=== PATIENT | male | born 1945 | race Caucasian/White ===

== ENCOUNTER 2018-02-08 05:38 | Observation (INO) | payer MEDICARE ==
--- NOTE | 2018-02-07 09:43 | Diagnostic Imaging Report ---
PROCEDURE:CHEST 2 VIEWS TECHNIQUE:PA and lateral chest INDICATION:Preoperative evaluation for spine surgery COMPARISON:None. FINDINGS: Lungs are clear. No pleural effusions. Normal heart size, mediastinal contour, and pulmonary vasculature. Intact skeleton. Mild multilevel degenerative disc disease. CONCLUSION: Normal chest. Dictated by: Ross Longoria M.D. on 02/07/2018 at 9:44 Electronically approved by: Ross Longoria M.D. on 02/07/2018 at 9:44
[2018-02-07 09:46] LABS: BASOPHILS # (AUTO) 0.1 (0.0-0.1); BASOPHILS % 0.7 % (0.0-1.0); EOSINOPHILS # (AUTO) 0.1 (0.0-0.4); EOSINOPHILS % 0.8 % (0.0-6.0); HEMATOCRIT 45.6 % (38.2-49.6); HEMOGLOBIN 14.8 g/dL (14.0-18.0); LYMPHOCYTES # (AUTO) 1.3 (1.0-3.2); LYMPHOCYTES % 15.5 % (18.0-39.1); MEAN CORPUSCULAR HEMOGLOBIN 28.7 pg (28-32); MEAN CORPUSCULAR HGB CONC 32.5 g/dL (31-35); MEAN CORPUSCULAR VOLUME 88.4 fL (81-99); MONOCYTES # (AUTO) 0.7 (0.2-0.8); MONOCYTES % 7.9 % (4.4-11.3); NEUTROPHILS # (AUTO) 6.4 (2.1-6.9); NEUTROPHILS % 74.5 % (38.7-80.0); PLATELET COUNT 261 x10e3/uL (140-360); RED BLOOD COUNT 5.16 x10e6/uL (4.3-5.7); RED CELL DISTRIBUTION WIDTH 13.2 % (11.7-14.4)
[2018-02-07 10:03] LABS: ANION GAP 11.9 mmol/L (8-16); CALCIUM 9.7 mg/dL (8.4-10.2); CREATININE, SERUM 1.55 mg/dL (0.72-1.25); POTASSIUM 4.9 mmol/L (3.5-5.1)
[2018-02-07 10:08] LABS: INR 1.05; PROTHROMBIN TIME 12.9 seconds (11.9-14.5)
[2018-02-07 10:09] LABS: PARTIAL THROMBOPLASTIN TIME 25.8 seconds (23.8-35.5)
[~2018-02-08] VITALS: Ht 172.7 cm; Wt 77.6 kg
[~2018-02-08 05:38] MED LIST: BENAZEPRIL HCL20 MG PO
--- OUTSIDE RECORDS SUMMARY | 2018-02-08 05:41 | XMS REPORT ---
[facility] Address Unknown Phone Unavailable Care Team Providers Care Facility Maintenance Manager Name Role Phone REYES VEGA Unavailable Unavailable Problems This patient has no known problems. Allergies, Adverse Reactions, Alerts This patient has no known allergies or adverse reactions. Medications This patient has no known medications. Results Test Description Test Time Test Comments Text Results Atomic Results Result Comments CHEST 2 VIEWS [place] [address] Patient Name: JOSE PENA MR #: [id number] : 1945 Age/Sex: 72/M Req # : [id number] Adm Physician: Ordered by: REYES VEGA MD Report #: [id number] Location: OR Room/Bed: Procedure: [id number] DX/CHEST 2 VIEWS Exam Date: 02/07/18 Exam Time: 0900 REPORT STATUS: Signed PROCEDURE: CHEST 2 VIEWS TECHNIQUE: PA and lateral chest INDICATION: Preoperative evaluation for spine surgery COMPARISON: None. FINDINGS: Lungs are clear. No pleural effusions. Normal heart size, mediastinal contour, and pulmonary vasculature. Intact skeleton. Mild multilevel degenerative disc disease. CONCLUSION: Normal chest. Dictated by: Robert Longoria M.D. on 02/07/2018 at 9:44 Electronically approved by: Robert Longoria M.D. on 2017 at 9:44 Dictated By: ROBERT LONGORIA MD 3 Transcribed By: ISABELA on 943 COPY TO: REYES VEGA MD
[2018-02-08] MEDS ORDERED: THROMBIN FOR SOLN 5,000 UNIT VIAL ONE (06:42)
[2018-02-08] MEDS ORDERED: BUPIVACAINE 0.5%/EPI 30 ML SDV INJ ONE (06:42)
[2018-02-08] MEDS ORDERED: GELATIN SPONGE SZ 100 ONE (06:42)
[2018-02-08] MEDS ORDERED: BACITRACIN 50,000 UNIT VIAL ONE (06:42)
[2018-02-08] MEDS ORDERED: LIDOCAINE HCL (LTA) 4 ML SOLN ONE (07:23)
[2018-02-08] MEDS ORDERED: ACETAMINOPHEN 1000 MG/100 ML 100 ML IV ONE (07:23)
[2018-02-08] MEDS ORDERED: CEFAZOLIN SOD 1 GM VIAL ONE (08:24)
[2018-02-08] MEDS ORDERED: ALEVE220 M1 PO (08:41)
[2018-02-08] MEDS ORDERED: LACTATED RINGER'S 1,000 ML IV SCH (10:08)
[2018-02-08] MEDS ORDERED: MAGNESIUM/ALUMINUM/SIMETHICONE 30 ML UDC PO PRN (10:15)
[2018-02-08] MEDS ORDERED: ACETAMINOPHEN 325 MG TAB PO PRN (10:15)
[2018-02-08] MEDS ORDERED: OXYCODONE/ACETAMINOPHEN 5-325 1 EACH TABLET PO PRN (10:15)
[2018-02-08] MEDS ORDERED: ZOLPIDEM TARTRATE 5 MG TAB PO PRN (10:15)
[2018-02-08] MEDS ORDERED: NON-FORMULARY MEDICATION (Naproxen Sodium (Aleve) 220 MG) PO SCH (10:15)
[2018-02-08] MEDS ORDERED: HYDROMORPHONE 2MG/ML INJ IV PRN (10:15)
[2018-02-08] MEDS ORDERED: ONDANSETRON HCL INJ 2 MG/ML VIAL IV PRN (10:15)
[2018-02-08] MEDS ORDERED: MORPHINE SULFATE 5 MG/ML VIAL IM PRN (10:15)
[2018-02-08] MEDS ORDERED: CEPACOL SORE THROAT LOZENGES PO PRN (10:15)
[2018-02-08] MEDS ORDERED: PROMETHAZINE HCL (IM) 25 MG/ML VIAL IM PRN (10:15)
[2018-02-08] MEDS ORDERED: CARISOPRODOL 350 MG TAB PO PRN (10:15)
[2018-02-08] MEDS ORDERED: NAPROXEN 250 MG TAB PO PRN (10:30)
[2018-02-08 11:30] VITALS: BP 139/65
[2018-02-08 11:52] VITALS: BP 139/65
--- NOTE | 2018-02-08 12:57 | Operative Report ---
DATE OF PROCEDURE: February 08, 2018 PREOPERATIVE DIAGNOSIS: L2-3 spinal stenosis with neurogenic claudication and left leg weakness, M48.062. POSTOPERATIVE DIAGNOSIS: L2-3 spinal stenosis with neurogenic claudication and left leg weakness, M48.062. PROCEDURES: 1. L2 bilateral decompressive laminectomy and L2-3 medial facetectomies, 36617. 2. L3 bilateral partial decompressive laminectomy, 53159. ANESTHESIA: General. INDICATIONS: The patient is a 72-year-old man who presents with low back pain and proximal left leg weakness and is found to have severe spinal stenosis at L2-3. He was taken to the operating room for bilateral decompressive laminectomy. PROCEDURE: After the induction of general anesthesia, the patient was placed on the operating table in prone position over a Adam frame. The lumbar region was prepped and draped in sterile fashion. A preoperative x-ray was obtained. A small midline incision was created. The lumbar fascia was opened along the midline, and a subperiosteal dissection was carried out to expose the L2 and L3 laminae and the medial aspect of the facet joints bilaterally. A 2nd x-ray confirmed correct localization. The operating microscope was brought in. A high-speed drill equipped with a casper bur was used to drill the inferior aspect of the lamina of L2 and the superior rim of the lamina of L3 and the medial rim of the L2-3 hypertrophic facet joints bilaterally. The markedly hypertrophic ligamentum flavum was then carefully resected, and the dura and the L3 traversing nerve roots were fully exposed and decompressed. Meticulous hemostasis was secured. The disk space underneath was explored on each side. This was a chronic disk bulge associated with minimal spondylolisthesis. No diskectomy was, therefore, performed. The wound was irrigated with Bacitracin solution and closed in multiple layers with 0 and 2-0 Vicryl sutures. The skin was closed with 3-0 Monocryl sutures in subcuticular fashion. Steri-Strips and a dressing were applied. The patient was awakened, extubated and taken to the postanesthesia care unit in stable condition. No intraoperative complications were encountered. The estimated blood loss was 10 mL. Job#: [id number]
[2018-02-08] MEDS ORDERED: CEFAZOLIN SOD 1 GM/NS 50ML 50 ML IV SCH (14:00)
[2018-02-08 16:17] VITALS: BP 104/60
[2018-02-08] MEDS: CEFAZOLIN SOD 1 GM VIAL IV SCH (16:29)
[2018-02-08] MEDS ORDERED: GLYCOPYRROLATE INJ 1MG/ 5 ML SYR ONE (17:50)
[2018-02-08] MEDS ORDERED: NEOSTIGMINE 5 MG/5ML SYR ONE (17:50)
[2018-02-08] MEDS ORDERED: EPHEDRINE SULFATE INJ 50 MG/10 ML SYR ONE (17:50)
[2018-02-08] MEDS ORDERED: LIDOCAINE HCL 2% LOCAL INJ 5 ML SDV VIAL INJ ONE (17:50)
[2018-02-08] MEDS ORDERED: PROPOFOL IV EMULSION 10 MG/ML 20 ML VIAL ONE (17:50)
[2018-02-08] MEDS ORDERED: ONDANSETRON HCL INJ 2 MG/ML VIAL ONE (17:50)
[2018-02-08] MEDS ORDERED: DEXAMETHASONE SOD PHOS INJ 4 MG/ML VIAL ONE (17:50)
[2018-02-08] MEDS ORDERED: DESFLURANE 240 ML BTL INH ONE (17:50)
[2018-02-08] MEDS ORDERED: ROCURONIUM BROMIDE 10 MG/ML 5ML VIAL ONE (17:50)
[2018-02-08] MEDS ORDERED: MIDAZOLAM HCL 2 MG/2 ML VIAL ONE (18:07)
[2018-02-08] MEDS ORDERED: FENTANYL CITRATE/PF 100MCG/2 ML INJ ONE (18:07)
[2018-02-08 21:00] VITALS: BP 113/63
[2018-02-08 23:15] VITALS: BP 97/67
[2018-02-09] MEDS: CEFAZOLIN SOD 1 GM VIAL IV SCH ×2 (01:20→09:38)
[2018-02-09 04:09] VITALS: BP 121/69
[2018-02-09 08:31] VITALS: BP 116/56
[2018-02-09] MEDS ORDERED: NON-FORMULARY MEDICATION (Benazepril Hcl 20 MG) PO SCH (09:00)
[2018-02-09] MEDS ORDERED: BENAZEPRIL HCL 10 MG TAB PO SCH (09:00)
== END 2018-02-09 10:00 | disposition home or self-care (01) ==
LOC: OR 05:38 → IMCU 10:55
PROVIDERS: ADMIT Neurological Surgery; ATTEND Neurological Surgery
DX: M48.062 Spinal stenosis, lumbar region with neurogenic claudication (principal); I10 Essential (primary) hypertension; M19.90 Unspecified osteoarthritis, unspecified site; Z88.5 Allergy status to narcotic agent
CPT/HCPCS: 36415; 63047; 63048; 71046; 72020; 80048; 85025; 85610; 85730; 86850; 86900; 88304; 88311; 93005; G0378 ×2; J0690 ×2; J1100; J2001; J2250; J2270; J2405

== ENCOUNTER 2025-02-25 15:12 | Inpatient (IN) | payer MEDICARE ==
[~2025-02-25] VITALS: Ht 172.7 cm; Wt 83.9 kg
[~2025-02-25 15:12] MED LIST changes: +ALEVE220 M1 PO
[2025-02-25 16:06] LABS: BASOPHILS # (AUTO) 0.1 (0.0-0.1); BASOPHILS % 0.7 % (0.0-1.0); EOSINOPHILS # (AUTO) 0.2 (0.0-0.4); EOSINOPHILS % 1.7 % (0.0-6.0); LYMPHOCYTES # (AUTO) 1.6 (1.0-3.2); LYMPHOCYTES % 19.1 % (18.0-39.1); MEAN CORPUSCULAR HEMOGLOBIN 29.6 pg (28-32); MEAN CORPUSCULAR HGB CONC 32.5 g/dL (31-35); MEAN CORPUSCULAR VOLUME 91.1 fL (81-99); MONOCYTES # (AUTO) 0.7 (0.2-0.8); MONOCYTES % 7.9 % (4.4-11.3); NEUTROPHILS % 70.4 % (38.7-80.0); PLATELET COUNT 270 x10e3/uL (140-360); RED BLOOD COUNT 4.39 x10e6/uL (4.3-5.7); RED CELL DISTRIBUTION WIDTH 14.3 % (11.7-14.4); WHITE BLOOD COUNT 8.59 x10e3/uL (4.8-10.8)
[2025-02-25 16:11] LABS: INR 0.97; PARTIAL THROMBOPLASTIN TIME 30.5 seconds (23.8-35.5); PROTHROMBIN TIME 13.5 seconds (11.9-14.5)
[2025-02-25 16:20] LABS: ALBUMIN 3.8 g/dL (3.5-5.0); ALBUMIN/GLOBULIN RATIO 1.2 (0.8-2.0); ANION GAP 16.5 mmol/L (8-16); BILIRUBIN,TOTAL 0.3 mg/dL (0.2-1.2); CALCIUM 9.3 mg/dL (8.4-10.2); CREATININE, SERUM 2.5 mg/dL (0.72-1.25); MAGNESIUM 2.1 MG/DL (1.3-2.1); POTASSIUM 4.5 mmol/L (3.5-5.1)
[2025-02-25] MEDS: CEFEPIME 2 GM in SODIUM CHLORIDE 0.9% 100 ML IV ONE (16:23)
[2025-02-25] MEDS ORDERED: Vancomycin IV 1 GM in SODIUM CHLORIDE 0.9% 250ML 250 ML IV SCH (16:30)
[2025-02-25] MEDS ORDERED: IOPAMIDOL 370 MG/ML 100 ML INFUS..BTL INJ ONE (16:48)
[2025-02-25] MEDS ORDERED: Vancomycin IV 1 GM in SODIUM CHLORIDE 0.9% 250ML 250 ML IV ONE (17:00)
[2025-02-25] MEDS: Vancomycin IV 1 GM in SODIUM CHLORIDE 0.9% 250ML 250 ML IV ONE (18:20)
[2025-02-25] MEDS: SODIUM CHLORIDE 0.9% 500ML 500 ML IV ONE (18:20)
[2025-02-25] MEDS ORDERED: ONDANSETRON HCL INJ 2MG/ML 2ML 2 MG/ML VIAL IV PRN (19:15)
[2025-02-25 19:41] VITALS: TEMP 97.6
[2025-02-25 20:00] VITALS: PULSE 69; RESP 16
[2025-02-25 20:45] VITALS: BP 138/72; PULSE 73; RESP 18; TEMP 97.5; O2SAT 100
[2025-02-25] MEDS: SODIUM CHLORIDE 0.9% 1000ML 1,000 ML IV ONE (20:45)
[2025-02-25] MEDS ORDERED: LEVOTHYROXINE25 MCG PO (21:47)
[2025-02-25] MEDS ORDERED: ALLOPURINOL300 MG PO (21:47)
[2025-02-26] VITALS (7 sets, daily range): BP systolic 112–137; BP diastolic 64–76; PULSE 66–72; RESP 18–21; TEMP 97.6–98.1; O2SAT 98–100
[2025-02-26 05:10] LABS: BASOPHILS # (AUTO) 0.1 (0.0-0.1); BASOPHILS % 0.8 % (0.0-1.0); EOSINOPHILS # (AUTO) 0.2 (0.0-0.4); EOSINOPHILS % 2.7 % (0.0-6.0); HEMATOCRIT 40.9 % (38.2-49.6); HEMOGLOBIN 12.9 g/dL (14.0-18.0); LYMPHOCYTES # (AUTO) 1.7 (1.0-3.2); MEAN CORPUSCULAR HEMOGLOBIN 29.7 pg (28-32); MEAN CORPUSCULAR HGB CONC 31.5 g/dL (31-35); MEAN CORPUSCULAR VOLUME 94.2 fL (81-99); MONOCYTES # (AUTO) 0.8 (0.2-0.8); MONOCYTES % 8.9 % (4.4-11.3); NEUTROPHILS # (AUTO) 5.7 (2.1-6.9); NEUTROPHILS % 67.2 % (38.7-80.0); PLATELET COUNT 269 x10e3/uL (140-360); RED BLOOD COUNT 4.34 x10e6/uL (4.3-5.7); RED CELL DISTRIBUTION WIDTH 14.3 % (11.7-14.4); WHITE BLOOD COUNT 8.47 x10e3/uL (4.8-10.8)
[2025-02-26 05:38] LABS: ALBUMIN 3.7 g/dL (3.5-5.0); ALBUMIN/GLOBULIN RATIO 1.2 (0.8-2.0); ANION GAP 16.6 mmol/L (8-16); BILIRUBIN,TOTAL 0.5 mg/dL (0.2-1.2); CALCIUM 9.5 mg/dL (8.4-10.2); CREATININE, SERUM 2.38 mg/dL (0.72-1.25); POTASSIUM 4.6 mmol/L (3.5-5.1); TOTAL PROTEIN 6.7 g/dL (6.5-8.1)
[2025-02-26] MEDS ORDERED: ALBUTEROL/IPRATROPIUM 3 ML NEB NEB PRN (07:30)
[2025-02-26] MEDS ORDERED: METOPROLOL TARTRATE INJ 1 MG/ML VIAL IV PRN (07:30)
[2025-02-26] MEDS ORDERED: ACETAMINOPHEN 325 MG TAB PO PRN (07:30)
[2025-02-26] MEDS ORDERED: DOCUSATE SODIUM 100 MG CAP PO PRN (07:30)
[2025-02-26] MEDS: ALLOPURINOL 100 MG TAB PO SCH (09:57)
[2025-02-26] MEDS: LEVOTHYROXINE SODIUM 25 MCG TABLET PO SCH (09:57)
[2025-02-26] MEDS: SODIUM BICARBONATE 8.4% VIAL 100 ML in DEXTROSE 5% 1,000 ML IV SCH (09:58)
[2025-02-26] MEDS: Vancomycin IV 1 GM in SODIUM CHLORIDE 0.9% 250ML 250 ML IV ONE (15:19)
[2025-02-26] MEDS: DOXYCYCLINE HYCLATE TABLET 100 MG TAB PO SCH (16:26)
[2025-02-26] MEDS ORDERED: MELATONIN 3 MG TAB PO PRN (21:00)
[2025-02-27 04:53] VITALS: BP 129/59; PULSE 64; RESP 18; TEMP 98.2; O2SAT 97
[2025-02-27 08:22] VITALS: BP 129/59; PULSE 64; RESP 18; TEMP 98.2; O2SAT 97
[2025-02-27 08:30] VITALS: BP 127/81; PULSE 90; RESP 19; TEMP 97.9; O2SAT 95
[2025-02-27 11:50] VITALS: BP 123/68; PULSE 80; RESP 19; TEMP 98.3; O2SAT 99
[2025-02-27] MEDS: LINEZOLID 600 MG TAB PO SCH (13:20)
[2025-02-27] MEDS: CIPROFLOXACIN 500 MG TAB PO SCH (13:20)
[2025-02-27 16:30] VITALS: BP 110/72; PULSE 84; RESP 19; TEMP 98.2; O2SAT 98
[2025-02-27 20:00] VITALS: BP 110/72; PULSE 84; RESP 19; TEMP 98.2; O2SAT 98
[2025-02-28] VITALS: BP 136/82; PULSE 71; RESP 16; TEMP 97.9; O2SAT 99
[2025-02-28 05:41] VITALS: BP 120/77; PULSE 76; RESP 16; TEMP 97.7; O2SAT 99
[2025-02-28 08:00] VITALS: BP 131/72; PULSE 72; RESP 19; TEMP 97.9; O2SAT 99
[2025-02-28] MEDS: MUPIROCIN 2% OINT 22 GM TUBE TOP SCH (09:20)
[2025-02-28 11:59] VITALS: BP 136/82; PULSE 82; RESP 21; TEMP 98.2; O2SAT 99
== END 2025-02-28 13:34 | disposition home or self-care (01) | DRG 603 ==
LOC: ER 15:51 → ERHOLD 19:07 → MED/SURG 20:16
PROVIDERS: ADMIT Internal Medicine; ATTEND Internal Medicine
DX: L03.114 Cellulitis of left upper limb (principal); N17.9 Acute kidney failure, unspecified; E87.20 Acidosis, unspecified; N18.4 Chronic kidney disease, stage 4 (severe); T63.421A Toxic effect of venom of ants, accidental (unintentional), initial encounter; Y92.007 Garden or yard of unspecified non-institutional (private) residence as the place of occurrence of the external cause; L03.012 Cellulitis of left finger; I87.2 Venous insufficiency (chronic) (peripheral); I12.9 Hypertensive chronic kidney disease with stage 1 through stage 4 chronic kidney disease, or unspecified chronic kidney disease; N28.89 Other specified disorders of kidney and ureter; I89.0 Lymphedema, not elsewhere classified; M10.9 Gout, unspecified; E03.9 Hypothyroidism, unspecified; Z71.3 Dietary counseling and surveillance; Z68.28 Body mass index [BMI] 28.0-28.9, adult; Z53.29 Procedure and treatment not carried out because of patient's decision for other reasons; Z96.651 Presence of right artificial knee joint; Z79.899 Other long term (current) drug therapy
CPT/HCPCS: 36415; 73201; 76770; 80053; 83735; 84550; 85025; 85610; 85730; 87040; 99252; 99284; J0692; J7030; J7040; J7050; J7070; Q9967

== ENCOUNTER 2025-03-03 09:00 | Outpatient (RCR) | payer MEDICARE ==
[2025-02-20 16:09] LABS: BASOPHILS % 0.5 % (0.0-1.0); EOSINOPHILS # (AUTO) 0.1 (0.0-0.4); EOSINOPHILS % 1.4 % (0.0-6.0); HEMATOCRIT 36.9 % (38.2-49.6); HEMOGLOBIN 11.8 g/dL (14.0-18.0); LYMPHOCYTES # (AUTO) 1.2 (1.0-3.2); LYMPHOCYTES % 13.6 % (18.0-39.1); MEAN CORPUSCULAR HEMOGLOBIN 29.6 pg (28-32); MEAN CORPUSCULAR VOLUME 92.7 fL (81-99); MONOCYTES # (AUTO) 0.7 (0.2-0.8); MONOCYTES % 7.9 % (4.4-11.3); NEUTROPHILS # (AUTO) 6.5 (2.1-6.9); NEUTROPHILS % 76.4 % (38.7-80.0); PLATELET COUNT 236 x10e3/uL (140-360); RED BLOOD COUNT 3.98 x10e6/uL (4.3-5.7); RED CELL DISTRIBUTION WIDTH 14.3 % (11.7-14.4); WHITE BLOOD COUNT 8.45 x10e3/uL (4.8-10.8)
[2025-02-20 16:28] LABS: ALBUMIN 3.6 g/dL (3.5-5.0); ALBUMIN/GLOBULIN RATIO 1.3 (0.8-2.0); ALKALINE PHOSPHATASE 57 IU/L (40-150); ANION GAP 16.8 mmol/L (8-16); BILIRUBIN,TOTAL 0.3 mg/dL (0.2-1.2); BLOOD UREA NITROGEN 46 mg/dL (7-26); BUN/CREATININE RATIO 18 (6-25); CALCIUM 9.1 mg/dL (8.4-10.2); CARBON DIOXIDE 22 mmol/L (22-29); CHLORIDE 107 mmol/L (98-107); CREATININE, SERUM 2.54 mg/dL (0.72-1.25); EST GLOMERULAR FILTRATION RATE 25 ML/MIN (>=60); GLUCOSE 98 mg/dL (74-118); POTASSIUM 4.8 mmol/L (3.5-5.1); SODIUM 141 mmol/L (136-145); TOTAL PROTEIN 6.4 g/dL (6.5-8.1)
[2025-02-20 16:31] LABS: ALANINE AMINOTRANSFERASE < 6 IU/L (0-55)
[~2025-03-03 09:00] MED LIST changes: +ALLOPURINOL300 MG PO; +COLLAGENASE OINTMENT 30 GM TUBE ONE; +LEVOTHYROXINE25 MCG PO; +MINERAL OIL/PETROLAT/GLYCERI 6OZ BTL ONE; +MUPIROCIN 2% OINT 22 GM TUBE ONE
[2025-03-03] MEDS ORDERED: MINERAL OIL/PETROLAT/GLYCERI 6OZ BTL ONE (09:59)
[2025-03-03] MEDS ORDERED: MUPIROCIN 2% OINT 22 GM TUBE ONE (09:59)
== END 2025-03-05 ==
LOC: WCC 09:00
PROVIDERS: ATTEND Internal Medicine Infectious Disease
DX: I87.311 Chronic venous hypertension (idiopathic) with ulcer of right lower extremity (principal); L97.811 Non-pressure chronic ulcer of other part of right lower leg limited to breakdown of skin; R60.0 Localized edema; R60.1 Generalized edema
CPT/HCPCS: 36415; 80053; 83036; 84134; 85025